=== PATIENT | female | born 1980 ===

== ENCOUNTER 2017-09-06 13:11 | Emergency (ER) | payer SELFPAY ==
[2017-09-06 13:27] VITALS: BP 138/75; PULSE 82; RESP 18; TEMP 36.6; O2SAT 100; BMI 22.1
--- NOTE | 2017-09-06 13:39 | ED_ITS ---
HPI - Psych <NURYS Sheehan - Last Filed: 09/06/17 22:24> General Chief Complaint: Psychiatric Symptoms Stated Complaint: 'NEED MEDICATION THAT WORKS' Time Seen by Provider: 09/06/17 13:19 History of Present Illness HPI Narrative: 37-year-old female with history of PTSD bipolar disorder and schizophrenia here because she desires new psychiatric medicine as she states that her medications are not helping her and she feels she is under more stress and does not feel that she is able to handle daily activities as well as she was in the past. She reports that she is on several medications that are not seeming to be helping her at this time. She states that she is being treated by the [facility]. She states she did have a psychiatrist that was taking care of her however the psychiatrist moved to [place] she no longer has a psychiatrist. She denies any suicidal ideation or homicidal ideation. No other concerns or complaints. MD complaint: other Related Data Home Medications Medication Instructions Recorded Confirmed bupropion HCl 1 tab PO DAILY 09/06/17 09/06/17 levothyroxine 1 tab PO DAILY 09/06/17 09/06/17 lorazepam 0.25 mg PO TID PRN 09/06/17 09/06/17 quetiapine 50 mg PO BID 09/06/17 09/06/17 temazepam 15 mg PO BEDTIME PRN 09/06/17 09/06/17 Review of Systems <NURYS Sheehan - Last Filed: 09/06/17 22:24> Constitutional Denies chills, Denies fever(s), Denies lethargy and Denies weakness Eyes Denies change in vision, Denies eye discharge, Denies irritation and Denies loss of vision ENT Ears, Nose, Mouth, and Throat: Denies change in voice, Denies neck pain and Denies sore throat Cardiovascular Denies chest pain, Denies irregular heart rhythm, Denies lightheadedness, Denies palpitations, Denies dyspnea, Denies dyspnea on exertion and Denies orthopnea Respiratory Denies cough, Denies dyspnea, Denies dyspnea on exertion and Denies wheezing Gastrointestinal Gastrointestinal: Denies abdominal pain, Denies change in bowel habits, Denies diarrhea, Denies nausea and Denies vomiting Genitourinary Denies hematuria, Denies flank pain, Denies urinary incontinence and Denies urinary urgency Musculoskeletal Denies neck pain Integumentary/Breasts Denies pruritus, Denies erythema, Denies rash and Denies wounds Neurologic Reports behavioral changes, Denies loss of vision and Denies weakness Psychiatric Reports abnormal sleep pattern, Reports behavioral changes, Reports difficulty concentrating, Denies homicidal ideation and Denies suicidal ideation Endocrine Denies palpitations Allergic/Immunologic Denies wheezing Exam <NURYS Sheehan - Last Filed: 09/06/17 22:24> Initial Vital Signs Initial Vital Signs: Vital Signs Temperature 97.9 F 09/06/17 13:27 Pulse Rate 82 09/06/17 13:27 Respiratory Rate 18 09/06/17 13:27 Blood Pressure 138/75 H 09/06/17 13:27 Pulse Oximetry 100 09/06/17 13:27 Const General: cooperative and well developed Nutritional Appearance: well nourished Orientation: alert, awake, oriented x3 and not confused HENMT Mouth: oral mucosae normal, oropharynx normal and moist mucous membranes Eyes Conjunctivae: conjunctivae normal Sclera: sclerae normal Pupils: PERRL EOM: EOM intact bilaterally Resp Effort & Inspection: normal respiratory effort, able to speak in complete sentences, no respiratory distress and no use of accessory muscles Auscultation: clear to auscultation bilaterally, no rales, no rhonchi and no wheezes Cardio Rate: regular rate Rhythm: regular rhythm Heart Sounds: no click, no gallops, no murmurs and no rubs Skin General: no rashes or lesions noted, No jaundice and No petechiae Psych Appearance: grossly normal and well kempt Speech and Movement: speech and movement normal Mood: anxious mood Affect: normal affect Attitude: cooperative Thought Process: normal Judgment: judgment good <Dharmesh Bruno DO - Last Filed: 09/09/17 13:58> Initial Vital Signs Initial Vital Signs: Vital Signs Temperature 97.9 F 09/06/17 13:27 Pulse Rate 82 09/06/17 13:27 Respiratory Rate 18 09/06/17 13:27 Blood Pressure 138/75 H 09/06/17 13:27 Pulse Oximetry 100 09/06/17 13:27 Course <NURYS Sheehan - Last Filed: 09/06/17 22:24> Vital Signs - 8 hr 09/06/17 13:27 Temperature 97.9 F Pulse Rate 82 Respiratory Rate 18 Blood Pressure 138/75 H Pulse Oximetry 100 <Dharmesh Bruno DO - Last Filed: 09/09/17 13:58> Vital Signs - 8 hr 09/06/17 13:27 Temperature 97.9 F Pulse Rate 82 Respiratory Rate 18 Blood Pressure 138/75 H Pulse Oximetry 100 MDM - Psych <Jose RichardsonNURYS selby - Last Filed: 09/06/17 22:24> MDM Narrative Medical decision making narrative: Due to multiple medications the patient is currently taking making changes to her regimen complicated would like to get patient to mental health specialist for further evaluation and treatment just meant. Had oncology social work try to see patient for resources to get patient to see mental health. While waiting for oncology social work to talk with patient patient left voluntarily. She stated she was at no threat to herself. Recommend that she seek mental health specialist for further evaluation and treatment. For any worsening symptoms return emergency room. Discharge Plan Departure Patient Disposition: Home, Self-Care Clinical Impression: Bipolar disorder Discharge Date/Time: 09/06/17 14:28 Interventions: ED Discharge Assessment Last Done: 09/06/17 14:26 Activity Restrictions/Additional Instructions: Follow up with mental health provider for further evaluation and treatment. Return emergency room for any worsening symptoms. Prescriptions: No Action quetiapine 25 mg tablet 50 mg PO BID RF: 0 levothyroxine 100 mcg tablet 1 tab PO DAILY RF: 0 lorazepam 0.5 mg tablet 0.25 mg PO TID PRN (Reason: Anxiety) RF: 0 temazepam 15 mg capsule 15 mg PO BEDTIME PRN (Reason: Sleep) RF: 0 bupropion HCl 300 mg tablet extended release 24 hr 1 tab PO DAILY RF: 0 <Dharmesh Bruno DO - Last Filed: 09/09/17 13:58> Cosign ED Attending Cosignature Attestation: I was immediately available in the department for consultation. This documentation has been reviewed and I agree with assessment and plan. Supervised by Dharmesh Bruno DO
--- NOTE | 2017-09-06 15:02 | CM.SWNOTE ---
AUTOMOTIVE PROJECT ENGINEER Note: Received call from ED staff indicating that patient requesting mental health resources. AUTOMOTIVE PROJECT ENGINEER attempted to meet with patient and TIA/Fifi reports that patient did not want to wait. Spoke with RN and NURYS/Jose both report that patient non suicidal/homicidal. P: AUTOMOTIVE PROJECT ENGINEER attempted mental health assessment, unable to complete because patient left. [facility] brochure left if patient happens to return. SILVANO Alves
== END 2017-09-06 14:28 | disposition home or self-care (01) ==
PROVIDERS: Emergency Provider Nurse Practitioner Family
DX: F31.9 Bipolar disorder, unspecified (principal)
CPT/HCPCS: 99281; 99282

== ENCOUNTER 2021-10-09 18:50 | Emergency (ER) | payer OTHER, MEDICAID, SELFPAY ==
[2021-10-09 19:11] VITALS: BP 140/85; PULSE 71; RESP 20; TEMP 36.8; O2SAT 97
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
[2021-10-09 20:45] LABS: Add Manual Diff / Slide Review NO; Basophils Absolute Auto 100 /uL (0-100); Eosinophils Absolute Auto 100 /uL (0-450); Eosinophils Percent Auto 0.7 % (2-4); Hematocrit 43.2 % (36-46); Hemoglobin 14.5 g/dL (12.0-16.0); Lymphocytes Absolute Auto 2000 /uL (1100-4500); Lymphocytes Percent Auto 25.2 % (25-40); Mean Corpuscular HGB Conc 33.6 % (30-36); Mean Corpuscular Volume 86.4 fL (80-100); Monocytes Absolute Auto 800 /uL (0-900); Monocytes Percent Auto 10.3 % (3-14); Neutrophils Absolute Auto 5000 /uL (1500-7000); Neutrophils Percent Auto 62.8 % (50-75); Platelet Count 360 X10^3/uL (150-400); Red Cell Distribution Width 16.9 % (11.6-14.8)
--- NOTE | 2021-10-09 21:07 | PC.NURSE ---
This RN went to offer patient a snack or drink but patient declined stating I decided I'm not doing that anymore. I am ready to go home. I don't want to kill myself but I want to go home. She also stated that God is my dad. Marcio is also my dad. She perseverates on the topic of her dads, a flower she broke, that she didn't do anything wrong and other thoughts that are difficult to follow up. Patient was tearful during this exchange but cooperative with Jose De Jesus anderson but reports that she has stopped peeing since deciding to stop eating and drinking. Notified provider.
[2021-10-09 21:20] LABS: COVID19 -Nasal RAPID Negative (Negative)
[2021-10-09 21:28] LABS: Alanine Aminotransferase 17 IU/L (<35); Albumin 4.6 g/dL (3.5-5.0); Albumin Globulin Ratio 1.6 (1.0-2.8); Alkaline Phosphatase 75 U/L (38-126); Aspartate Aminotransferase 25 IU/L (14-36); BUN Creatinine Ratio 13.5 (6-22); Bilirubin Total 0.4 mg/dL (0.2-1.3); Blood Urea Nitrogen 10 mg/dL (7-17); Calcium 9.8 mg/dL (8.4-10.2); Carbon Dioxide 27 mmol/L (22-32); Chloride 103 mmol/L (98-107); Estimated Glomerular Filt Rate > 60 mL/min (>60); Ethanol (ETOH) < 10 mg/dL; Globulin 2.8 g/dL (1.7-4.1); Glucose 103 mg/dL (70-100); HEMOLYSIS < 15 (0-50); Potassium 3.5 mmol/L (3.4-5.1); Sodium 138 mmol/L (137-145); Total Protein 7.4 g/dL (6.3-8.2)
[2021-10-09 22:18] LABS: Free T4, Direct Thyroxine 1.52 ng/dL (0.78-2.19)
[2021-10-09] MEDS: OLANZapine ODT 10 MG TAB 20 MG PO (22:44)
[2021-10-10 04:25] LABS: Bilirubin Urine UA 1+ (NEGATIVE); Glucose Urine UA NEGATIVE (Negative); Ketones Urine UA 1+ (NEGATIVE); Leukocyte Esterase Urine UA NEGATIVE (NEGATIVE); Nitrite Urine UA NEGATIVE (Negative); Occult Blood Urine UA NEGATIVE (Negative); Protein Urine UA 1+ (Negative); Specific Gravity Urine UA 1.025 (1.000-1.035); Urobilinogen Urine UA 0.2 E.U./dL (0.2)
[2021-10-10 04:26] LABS: Pregnancy Test Urine Negative (Negative)
[2021-10-10 04:27] LABS: Appearance Urine UA Slightly Cloudy; Color Urine UA Dark Yellow
[2021-10-10 04:30] LABS: UR Morphine/Opiate cutoff 300 Negative (Negative); Ur Creatinine Normal (Normal); Ur Specific Gravity Normal (Normal); Urine Amphetamines Negative (Negative); Urine Barbiturates Negative (Negative); Urine Benzodiazepines Negative (Negative); Urine Cocaine Negative (Negative); Urine MDMA Negative (Negative); Urine Methadone Negative (Negative); Urine Methamphetamines Negative (Negative); Urine Phencyclidine Negative (Negative); Urine Tetrahydrocannabinol Negative (Negative); Urine pH Normal (Normal)
[2021-10-10 04:31] LABS: Ictotest Urine Positive (Negative); Urine Oxycodone Negative (Negative); Urine Tricyclic Antidepressant Negative (Negative)
[2021-10-10 04:35] LABS: Mucus Urine 3+ (Negative); RBC Urine None Seen (0-5/HPF); Squamous Epithelial Cell Urine 5-10 /HPF (0-5/HPF); WBC Urine None Seen (0-5/HPF)
[2021-10-10 04:36] LABS: Bacteria Urine Moderate (10-30)
[2021-10-10 04:50] LABS: Calcium Oxalate Crystals Urine Moderate; Culture Indicated Urine Cult Not Indicated
[2021-10-10 09:59] VITALS: BP 146/69; PULSE 82; RESP 18; O2SAT 100
== END 2021-10-10 09:59 | disposition home or self-care (01) ==
PROVIDERS: Emergency Medicine; Emergency Provider Family Medicine Addiction Medicine
DX: F43.0 Acute stress reaction (principal); F22 Delusional disorders; Z20.822 Contact with and (suspected) exposure to COVID-19
CPT/HCPCS: 36415; 80053; 80305; 80320; 81001; 81025; 84439; 84443; 85025; 87635; 93005; 99283; 99284; C9803

== ENCOUNTER 2021-11-08 19:32 | Emergency (ER) | payer OTHER, MEDICAID, SELFPAY ==
[2021-11-08 19:50] VITALS: BP 140/78; PULSE 49; RESP 17; TEMP 36.8; O2SAT 100; BMI 28.7
--- NOTE | 2021-11-08 20:44 | ED.PSYCH ---
HPI - Psych General Chief Complaint: Psychiatric Symptoms Stated Complaint: Can't sleep Time Seen by Provider: 11/08/21 20:14 Source: patient and police Mode of arrival: Ambulatory History of Present Illness HPI Narrative: This 41-year-old woman with schizophrenia comes to the ER today because she says she has insomnia and would like an Ambien pale. She tells me many things but mostly she tells me that she does not have schizophrenia and does not need to take medication for it anymore. She says that she does have some people to try to get into her house but she does not feel in danger from them. She does not have suicidal or homicidal ideation. She denies any recent illness or injury. Related Data Home Medications Medication Instructions Recorded Confirmed levothyroxine 100 mcg tablet 100 mcg PO QAM 10/09/21 10/09/21 olanzapine 15 mg tablet 30 mg PO BEDTIME 10/09/21 10/09/21 Allergies Allergy/AdvReac Type Severity Reaction Status Date / Time No Allergy Information Allergy Verified 10/09/21 23:07 Available Review of Systems Review of Systems Narrative: Review of systems is difficult in this psychotic patient but she denies specifically cough, vomiting, chest pain, fever, abdominal pain. Patient History Medical History Bipolar disorder PTSD (post-traumatic stress disorder) Schizophrenia Social History Smoking Status: Current every day smoker Smoking Status: Current every day smoker alcohol intake frequency: 0-2 drinks per day Substance Use Type: does not use Exam Narrative Exam Narrative: GENERAL: Alert, cooperative and in no distress. HEAD: Atraumatic. Normocephalic. EYES: Sclera are clear without icterus. Extraocular movements are full. ENT: No rhinorrhea. Oropharynx is moist. Mouth exam is benign. NECK: Supple. Full range of motion. CARDIOVASCULAR: Normal rate and rhythm without murmur gallop or rub. RESPIRATORY: Clear to auscultation. Breath sounds equal bilaterally. No wheezes, rales, or rhonchi. GASTROINTESTINAL: Abdomen soft, non-tender, nondistended. EXTREMITIES: No edema, full range of motion. No obvious trauma. BACK: Normal inspection, no CVA tenderness. NEURO: Nonfocal examination, normal speech, normal gait. SKIN: No rash or erythema of visible areas PSYCH: Rambling speech tangential speech. Paranoia and probably some visual hallucination. Initial Vital Signs Initial Vital Signs: Vital Signs Temperature 98.2 F 11/08/21 19:50 Pulse Rate 49 L 11/08/21 19:50 Respiratory Rate 17 11/08/21 19:50 Blood Pressure 140/78 11/08/21 19:50 Pulse Oximetry 100 11/08/21 19:50 Oxygen Delivery Method 11/08/21 19:50 Course Orders Ordered: Zolpidem Tartrate (Zolpidem 5 Mg Tablet) 10 mg PO BEDTIME PRN PRN Reason: Sleep Vital Signs Vital signs: Vital Signs - 8 hr 11/08/21 19:50 Temperature 98.2 F Pulse Rate 49 L Respiratory Rate 17 Blood Pressure 140/78 Pulse Oximetry 100 Oxygen Delivery Method Room Air MDM - Psych MDM Narrative Medical decision making narrative: This psychotic patient is well-known to the ED staff is a frequent visitor and also former employee at the hospital. She also lives in the community and is commonly walking about. She has never known to to be dangerous to herself or others. She requests specifically an Ambien to help sleep which I have provided her. I would not feel comfortable giving her prescription of this and encouraged her to follow up with her outpatient provider for these prescriptions. I would welcome her return if she feels she is in crisis. Discharge Plan Departure Patient Disposition: Home Clinical Impression: Acute psychosis, Insomnia Activity Restrictions/Additional Instructions: I think your insomnia will be better with the medicine we gave you tonight. I also think you should be on some other medications to help with her mental health and sleeping. Follow-up with your doctor in the next few days for help with prescriptions. Prescriptions: No Action levothyroxine 100 mcg tablet 100 mcg PO QAM olanzapine 15 mg tablet 30 mg PO BEDTIME Referrals: Miscellaneous,DoctorMD [Primary Care Provider] -
[2021-11-08] MEDS: ZOLPIDEM 5 MG TABLET 10 MG PO (20:49)
== END 2021-11-08 20:58 | disposition home or self-care (01) ==
PROVIDERS: Emergency Provider Family Medicine Addiction Medicine
DX: F23 Brief psychotic disorder (principal); G47.00 Insomnia, unspecified
CPT/HCPCS: 99283

== ENCOUNTER 2021-11-11 04:55 | Emergency (ER) | payer OTHER, MEDICAID, SELFPAY ==
[2021-11-11 05:09] VITALS: BP 144/102; PULSE 46; RESP 17; TEMP 36.8; O2SAT 98; BMI 25.8
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
[2021-11-11] MEDS: OLANZapine ODT 10 MG TAB 20 MG PO (08:06)
[2021-11-11 08:14] LABS: Add Manual Diff / Slide Review NO; Basophils Absolute Auto 0 /uL (0-100); Basophils Percent Auto 0.5 % (0-2); Eosinophils Absolute Auto 0 /uL (0-450); Eosinophils Percent Auto 0.2 % (2-4); Hematocrit 39.9 % (36-46); Hemoglobin 13.7 g/dL (12.0-16.0); Lymphocytes Absolute Auto 1500 /uL (1100-4500); Lymphocytes Percent Auto 15.7 % (25-40); Mean Corpuscular HGB Conc 34.4 % (30-36); Mean Corpuscular Hemoglobin 29.7 PG (26-34); Mean Corpuscular Volume 86.2 fL (80-100); Monocytes Absolute Auto 700 /uL (0-900); Monocytes Percent Auto 7.4 % (3-14); Neutrophils Absolute Auto 7200 /uL (1500-7000); Neutrophils Percent Auto 76.2 % (50-75); Platelet Count 408 X10^3/uL (150-400); Red Blood Cell Count 4.62 X10^6/uL (4.0-5.2); Red Cell Distribution Width 15.9 % (11.6-14.8); White Blood Cell Count 9.5 X10^3/uL (4.5-11.0)
[2021-11-11 08:34] LABS: Alanine Aminotransferase 15 IU/L (<35); Albumin 4.3 g/dL (3.5-5.0); Albumin Globulin Ratio 1.5 (1.0-2.8); Alkaline Phosphatase 64 U/L (38-126); Aspartate Aminotransferase 23 IU/L (14-36); BUN Creatinine Ratio 14.3 (6-22); Bilirubin Total 0.8 mg/dL (0.2-1.3); Blood Urea Nitrogen 11 mg/dL (7-17); Calcium 10.2 mg/dL (8.4-10.2); Carbon Dioxide 26 mmol/L (22-32); Chloride 103 mmol/L (98-107); Estimated Glomerular Filt Rate > 60 mL/min (>60); Ethanol (ETOH) < 10 mg/dL; Globulin 2.8 g/dL (1.7-4.1); Glucose 94 mg/dL (70-100); HEMOLYSIS < 15 (0-50); Potassium 3.2 mmol/L (3.4-5.1); Sodium 138 mmol/L (137-145); Total Protein 7.1 g/dL (6.3-8.2)
[2021-11-11 08:40] LABS: COVID19 -Nasal RAPID Negative (Negative)
--- NOTE | 2021-11-11 09:16 | PC.NURSE ---
Pt requesting something to sleep,pt had zyprexa approx 1 hour ago
[2021-11-11] MEDS: LORazepam 0.5 MG TABLET 1 MG PO (09:33)
--- NOTE | 2021-11-11 11:09 | PC.NURSE ---
Per Dr. Plata, pt is low risk.
[2021-11-11 11:24] LABS: Free T4, Direct Thyroxine 0.35 ng/dL (0.78-2.19)
[2021-11-11] MEDS: LEVOTHYROXINE INJ 100 MCG/5 ML VIAL 200 MCG IV (12:40)
[2021-11-11 13:01] LABS: UR Morphine/Opiate cutoff 300 Negative (Negative); Ur Creatinine Normal (Normal); Ur Specific Gravity Normal (Normal); Urine Amphetamines Negative (Negative); Urine Barbiturates Negative (Negative); Urine Benzodiazepines Negative (Negative); Urine Cocaine Negative (Negative); Urine MDMA Negative (Negative); Urine Methadone Negative (Negative); Urine Methamphetamines Negative (Negative); Urine Oxycodone Negative (Negative); Urine Phencyclidine Negative (Negative); Urine Tetrahydrocannabinol Negative (Negative); Urine Tricyclic Antidepressant Negative (Negative); Urine pH Normal (Normal)
[2021-11-11 13:18] VITALS: BP 97/64; PULSE 54; RESP 16; O2SAT 96
[2021-11-11 13:34] LABS: Bacteria Urine Many (>30); RBC Urine 1-5/HPF (0-5/HPF); Squamous Epithelial Cell Urine 1-5 /HPF (0-5/HPF); WBC Urine 1-5/HPF (0-5/HPF)
[2021-11-11 13:36] LABS: Culture Indicated Urine Specimen Cultured
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
--- NOTE | 2021-11-11 18:25 | CM.SWNOTE ---
BIOMETRICS TECHNICIAN Note Patient meets with Artis BISWAS via ipad. Artis searches for [facility] bed for patient, patient is deemed to meet [facility] criteria. Artis endorses that patient is accepted at [facility] by accepting provider Mickey Salazar, elina Kim this evening at 2300. Nurse to Nurse: # [phone] [facility] to set up transportation. BIOMETRICS TECHNICIAN receives legal [facility] documentation and serves patient with Artis DCR present via ipad. Patient indicates understanding. Plan: Patient to transfer to [facility] for [facility] inpatient bed this evening. EBEN Martinez
[2021-11-11 18:56] VITALS: BP 123/60; PULSE 59; RESP 22; TEMP 36.6; O2SAT 100
--- NOTE | 2021-11-11 21:41 | PC.NURSE ---
Pt resting, eyes closed, respiratory rate regular/18.
== END 2021-11-11 22:37 ==
PROVIDERS: Emergency Provider Emergency Medicine
DX: F23 Brief psychotic disorder (principal); Z20.822 Contact with and (suspected) exposure to COVID-19
CPT/HCPCS: 36415; 80053; 80305; 80320; 81003; 81015; 81025; 84439; 84443; 85025; 87086; 87635; 96374; 99285; C9803